=== PATIENT | male | born 1965 | race Caucasian/White ===

== ENCOUNTER 2020-12-06 18:29 | Emergency (ER) | payer MEDICAID ==
[~2020-12-06] VITALS: Ht 172.7 cm; Wt 116.0 kg
[2020-12-06 18:34] VITALS: BP 126/76
== END 2020-12-06 20:24 | disposition home or self-care (01) ==
LOC: ED 18:59
DX: H60.501 Unspecified acute noninfective otitis externa, right ear (principal); H92.01 Otalgia, right ear
CPT/HCPCS: 99283